=== PATIENT | female | born 1955 | race Caucasian/White ===

== ENCOUNTER 2022-03-18 18:02 | Emergency (ER) | payer MEDICARE, OTHER, SELFPAY ==
[2022-03-18 18:05] VITALS: BP 201/96; PULSE 64; RESP 20; TEMP 36.7; O2SAT 99
--- NOTE | 2022-03-18 18:17 | DI.CT.S_ITS ---
PROCEDURE: CT HEAD/BRAIN WO CON INDICATIONS: fall from horse/headache/nausea/dizziness TECHNIQUE: Noncontrast 4.5 mm thick angled axial sections acquired from the foramen magnum to the vertex, with coronal and sagittal reformats. For radiation dose reduction, the following was used: automated exposure control, adjustment of mA and/or kV according to patient size. COMPARISON: None. FINDINGS: Image quality: Excellent. CSF spaces: Basal cisterns are patent. No extra-axial fluid collections. The ventricles are symmetric in size and shape. Brain: No intracranial bleeds or masses. There is cerebral volume loss for age, with resultant ventricular and sulcal prominence. There are periventricular and deep white matter chronic small vessel ischemic changes. There is intracranial internal carotid artery atherosclerosis. Skull and face: Calvarium and visualized facial bones appear intact, without suspicious lesions. Sinuses: Visualized sinuses and mastoids are clear. IMPRESSION: No evidence acute intracranial process. Dictated by: Andrey Aparicio M.D. on 03/18/2022 at 18:31 Approved by: Andrey Aparicio M.D. on 03/18/2022 at 18:32
--- NOTE | 2022-03-18 18:17 | DI.CT.S_ITS ---
PROCEDURE: CT CERVICAL SPINE WO CON INDICATIONS: fall from horse/headache/nausea/dizziness TECHNIQUE: Noncontrast 3 mm thick sections acquired from the skull base to the T4 level. Sagittal and coronal reformats were then constructed. For radiation dose reduction, the following was used: automated exposure control, adjustment of mA and/or kV according to patient size. COMPARISON: None. FINDINGS: Image quality: Excellent. Bones: No fractures or dislocations. Visualized superior ribs are intact. There is some patient motion artifact. This likely represents the abnormal appearance of the right anterior 1st rib on the sagittal reconstruction. Diffuse cervical spondylitic change. Multilevel severe disc height loss and uncovertebral joint osteophytes resulting in multilevel bony foraminal narrowing. Trace anterolisthesis of C3 on C4 is likely degenerative in nature. Soft tissues: Prevertebral soft tissues are normal in thickness. No paravertebral hematomas. No apical pneumothoraces. IMPRESSION: No evidence acute cervical fracture or dislocation. Severe cervical spondylitic change. Dictated by: Andrey Aparicio M.D. on 03/18/2022 at 18:33 Approved by: Andrey Aparicio M.D. on 03/18/2022 at 18:37
[2022-03-18 20:03] VITALS: PULSE 57; O2SAT 98
[2022-03-18 20:07] VITALS: BP 194/91; PULSE 56; O2SAT 100
--- NOTE | 2022-03-18 20:28 | ED.HA ---
HPI - Headache General Chief Complaint: Headache Stated Complaint: Fell off horse yest./concussion x2 Time Seen by Provider: 03/18/22 20:23 Mode of arrival: Ambulatory History of Present Illness HPI Narrative: 67-year-old female nonsmoker with noncontributory medical history presents with a chief complaint of a headache and nausea after falling off of her horse yesterday. She was riding her horse on her property when it bucked her off and she fell to the ground striking her head. She was wearing a helmet and denies any loss of consciousness. She remembers the entire event. She takes no blood thinners and denies use of alcohol. She has had a few episodes of vomiting and is mildly dizzy but states her symptoms by and large are [id number]. She was seen and evaluated by medics on [place] [place] and encouraged to come see us for further evaluation. Related Data Previous Rx's Medication Instructions Recorded ondansetron 4 mg disintegrating 4 mg PO TID-QID PRN #10 tab 03/18/22 tablet Allergies Allergy/AdvReac Type Severity Reaction Status Date / Time No Known Drug Allergies Allergy Verified 03/18/22 18:08 Review of Systems Review of Systems Narrative: GENERAL: Denies chills, fatigue, malaise, fever, sweats. HEENT: Denies sinus pain, ear pain, sore throat, difficulty swallowing, dizziness. RESPIRATORY: Denies dyspnea, cough, wheezing, hemoptysis, sputum. CARDIOVASCULAR: Denies chest pain, palpitations, orthopnea, edema, GASTROINTESTINAL: see HPI. : Denies dysuria, frequency, incontinence, hematuria, urinary retention. MUSCULOSKELETAL: denies weakness, joint pain, or bony pain SKIN: Denies rash, skin lesions, or other NEUROLOGIC: See HPI PSYCHIATRIC: No concerning psychosocial issues. 12 point review of systems is negative except for those stated above Exam Narrative Exam Narrative: GENERAL: [67] year old patient appears stated age. Well-developed patient, in mild distress. GCS 15 HEAD: Atraumatic. Normocephalic. EYES: Pupils equal round and reactive. No hyphema Extraocular motions intact. No scleral icterus. No injection or drainage. ENT: Nose without bleeding, purulent drainage. No nasal septal hematoma Throat without erythema, tonsillar hypertrophy or exudate. Airway patent. NECK: Trachea midline. Non tender CARDIOVASCULAR: Regular rate and rhythm without murmurs, gallops, or rubs. RESPIRATORY: Clear to auscultation. Breath sounds equal bilaterally. No wheezes, rales, or rhonchi. GASTROINTESTINAL: Abdomen soft, non-tender, nondistended. EXTREMITIES: No edema or joint tenderness. BACK: Nontender without deformity or crepitance. No flank tenderness. NEURO: AOx3. SKIN: No rash or erythema of visible areas Initial Vital Signs Initial Vital Signs: Vital Signs Temperature 98.1 F 03/18/22 18:05 Pulse Rate 64 03/18/22 18:05 Respiratory Rate 20 03/18/22 18:05 Blood Pressure 201/96 H 03/18/22 18:05 Pulse Oximetry 99 03/18/22 18:05 Course Orders Ordered: Discontinued Medications Ondansetron HCl (Ondansetron 4 Mg Odt Prepack) 1 bottle MISC SEEINSTR ONE Stop: 03/18/22 20:38 Last Admin: 03/18/22 20:45 Dose: 1 bottle Documented by: AMPARO Vital Signs Vital signs: Vital Signs - 8 hr 03/18/22 20:30 Pulse Rate 65 Blood Pressure 182/90 H Pulse Oximetry 98 MDM - Headache Imaging Data CT scan - head: Radiologist's Impression: [place] [id number] CT Scan Report Signed Patient: Raven Sepulveda MR#: [id number] : 1955 Acct:[id number] Age/Sex: 67 / F Date of Service: 03/18/22 Loc: ED Accession Number: [id number] ?? Procedure: CT head/brain wo con Ordering Provider: Tristian Becerra D.O. PROCEDURE:? CT HEAD/BRAIN WO CON ? INDICATIONS:? fall from horse/headache/nausea/dizziness ? TECHNIQUE:? Noncontrast 4.5 mm thick angled axial sections acquired from the foramen magnum to the vertex, with coronal and sagittal reformats.? For radiation dose reduction, the following was used:? automated exposure control, adjustment of mA and/or kV according to patient size.? ? COMPARISON:? None. ? FINDINGS:? Image quality:? Excellent.? ? CSF spaces:? Basal cisterns are patent.? No extra-axial fluid collections.? The ventricles are symmetric in size and shape.? ? Brain:? No intracranial bleeds or masses.? There is cerebral volume loss for age, with resultant ventricular and sulcal prominence.? There are periventricular and deep white matter chronic small vessel ischemic changes.? There is intracranial internal carotid artery atherosclerosis.? ? Skull and face:? Calvarium and visualized facial bones appear intact, without suspicious lesions.? ? Sinuses:? Visualized sinuses and mastoids are clear.? ? IMPRESSION:? No evidence acute intracranial process. ? ? Dictated by: Andrey Aparicio M.D. on 03/18/2022 at 18:31 ? ? Approved by: Andrey Aparicio M.D. on 03/18/2022 at 18:32 ? CT - cervical spine: Radiologist's Impression: [place] [address] CT Scan Report Signed Patient: Raven Sepulveda MR#: [id number] : 1955 Acct:[id number] Age/Sex: 67 / F Date of Service: 03/18/22 Loc: ED Accession Number: [id number] ?? Procedure: CT cervical spine wo con Ordering Provider: Tristian Becerra D.O. PROCEDURE:? CT CERVICAL SPINE WO CON ? INDICATIONS:? fall from horse/headache/nausea/dizziness ? TECHNIQUE:? Noncontrast 3 mm thick sections acquired from the skull base to the T4 level.? Sagittal and coronal reformats were then constructed.? For radiation dose reduction, the following was used:? automated exposure control, adjustment of mA and/or kV according to patient size.? ? COMPARISON:? None. ? FINDINGS:? Image quality:? Excellent.? ? Bones:? No fractures or dislocations.? Visualized superior ribs are intact.? There is some patient motion artifact.? This likely represents the abnormal appearance of the right anterior 1st rib on the sagittal reconstruction.? Diffuse cervical spondylitic change.? Multilevel severe disc height loss and uncovertebral joint osteophytes resulting in multilevel bony foraminal narrowing.? Trace anterolisthesis of C3 on C4 is likely degenerative in nature. ? Soft tissues:? Prevertebral soft tissues are normal in thickness.? No paravertebral hematomas.? No apical pneumothoraces.? ? ? IMPRESSION:? No evidence acute cervical fracture or dislocation.? Severe cervical spondylitic change. ? Dictated by: Andrey Aparicio M.D. on 03/18/2022 at 18:33 ? ? MDM Narrative Medical decision making narrative: Patient presents with moderate concussive symptoms and otherwise reassuring history and physical exam. Imaging is unremarkable there is no evidence of intracranial hemorrhage or other abnormal finding. Pain is well controlled, she is able to ambulate without difficulty and is tolerating hydration. Return precautions given and questions answered to her apparent satisfaction Discharge Plan Departure Patient Disposition: Home Clinical Impression: Postconcussion syndrome Instructions: DI for Concussion Activity Restrictions/Additional Instructions: *You have been diagnosed with [concussion. As we discussed your history and physical exam are very reassuring and the CT scan of your head and neck showed no signs of significant injury such as bleeding or bruising in your brain or fracture, dislocation or other bony abnormality in your neck. *What to do: *Please continue to take your regular medications as directed. [x] New medication prescriptions sent to your pharmacy: [[facility] ] [ ] New medication written as a paper prescription [ ] No new medications given * You have a moderate concussion and will likely have a mild headache and some nausea for a few days. Avoiding highly stimulating activities and even TV or computers may be helpful in minimizing your symptoms. Avoid activities that will put you at risk for another head injury for at least a week. You can take tylenol for headache or the prescription provided for nausea/vomiting. Return for worsening or persistent symptoms *If you do not have a primary care provider please contact the [facility] Resource line at [phone]. They will ask some questions about your medical history and help get you set up with a doctor in the community. *Return to Emergency Department if you should have any new, worsening or concerning symptoms, such as [fever greater than 101 F, shaking chills, worsening pain, persistent vomiting or other bothersome symptoms] Prescriptions: New ondansetron 4 mg tablet,disintegrating 4 mg PO TID-QID PRN (Reason: nausea and vomiting) Qty: 10 0RF Referrals: Brittni Ruiz MD [Primary Care Provider] -
[2022-03-18 20:30] VITALS: BP 182/90; PULSE 65; O2SAT 98
[2022-03-18] MEDS: ONDANSETRON 4 MG ODT PREPACK 1 BOTTLE MISC (20:45)
== END 2022-03-18 20:54 | disposition home or self-care (01) ==
PROVIDERS: Emergency Provider Emergency Medicine; PCP Family Medicine
DX: F07.81 Postconcussional syndrome (principal)
CPT/HCPCS: 70450; 72125; 99281; 99284

== ENCOUNTER → 2024-04-13 15:41 | Outpatient (CLI) | payer MEDICARE, OTHER, SELFPAY ==
--- NOTE | 2024-04-13 | DI.RAD.S_ITS ---
PROCEDURE: XR LUMBAR SPINE 2-3V INDICATIONS: low back pain TECHNIQUE: 3 views of the lumbar spine were acquired. COMPARISON: None. FINDINGS: Bones: 5 [id number] vertebrae are present. Grade 1 anterolisthesis of L4 on L5. Mild dextrocurvature of the lower lumbar spine. There is multilevel facet arthropathy, worse at L4-5 and L5-S1. Multilevel disc height loss with degenerative endplate changes and spurring is present. This is most pronounced at L4-5. No vertebral body compression fractures. No suspicious bony lesions. Diffusely decreased osseous mineralization. Soft tissues: Overlying bowel gas pattern is normal. No suspicious soft tissue calcifications. Atherosclerotic vascular calcifications. IMPRESSION: Multilevel degenerative changes of the lumbar spine, most pronounced at L4-5 with grade 1 anterolisthesis. Dictated by: Volodymyr Dennison M.D. on 04/13/2024 at 16:49 Approved by: Volodymyr Dennison M.D. on 04/13/2024 at 16:50
== END ==
PROVIDERS: PCP Family Medicine; Referring Provider Chiropractor; Visit Provider Chiropractor
DX: M47.816 Spondylosis without myelopathy or radiculopathy, lumbar region (principal); M47.817 Spondylosis without myelopathy or radiculopathy, lumbosacral region; M43.16 Spondylolisthesis, lumbar region; M54.50 Low back pain, unspecified
CPT/HCPCS: 72100

== ENCOUNTER → 2025-06-13 08:55 | Outpatient (CLI) | payer MEDICARE, OTHER, SELFPAY ==
--- NOTE | 2025-06-13 09:04 | DI.RAD.S_ITS ---
PROCEDURE: XR CHEST 2V INDICATIONS: URINARY INCONTENENCE TECHNIQUE: 2 views of the chest were acquired. COMPARISON: None. FINDINGS: [id number] bilateral perihilar and lower lobe peribronchial thickening and mild patchy lower lobe opacities, some of which may be related expiratory result; however, bronchitis, viral infection, asthma or other process should be considered. Follow-up suggested. Mildly prominent nolberto, mildly prominent pulmonary vessels and/or hilar lymph nodes. Mild bibasilar subsegmental atelectasis. Degenerative changes of the thoracic spine and shoulders. Cardiopericardial silhouette within normal limits. No pneumothorax, no pleural effusion. IMPRESSION: Peribronchial thickening with patchy lower lobe opacities as discussed above. Follow-up suggested. If symptoms persist or worsen, CT chest could be performed. Dictated by: Otto Barajas M.D. on 06/13/2025 at 21:10 Approved by: Otto Barajas M.D. on 06/13/2025 at 21:12
--- NOTE | 2025-06-13 09:05 | DI.RAD.S_ITS ---
PROCEDURE: XR SACRUM COCCYX MIN 2V INDICATIONS: URINARY INCONTENENCE TECHNIQUE: 3 views of the sacrum and coccyx acquired. COMPARISON: None. FINDINGS: Stimulator device battery pack is noted posteriorly which is at the level of the left iliac bone with lead extending anteriorly into the pelvis at approximately S4 level terminates approximately 1.9 cm anterior to the anterior margin of the sacrum. Degenerative changes lower lumbar spine with grade 1 spondylolisthesis L4 and L5. No radiographic evidence of displaced fracture, dislocation . IMPRESSION: Stimulator device lead and battery pack as discussed above. Degenerative changes. Dictated by: Otto Barajas M.D. on 06/13/2025 at 21:39 Approved by: Otto Barajas M.D. on 06/13/2025 at 21:41
== END ==
PROVIDERS: PCP Family Medicine; Referring Provider Family Medicine; Visit Provider Student in an Organized Health Care Education/Training Program
DX: J98.11 Atelectasis (principal); R32 Unspecified urinary incontinence; M47.814 Spondylosis without myelopathy or radiculopathy, thoracic region; M47.816 Spondylosis without myelopathy or radiculopathy, lumbar region; M43.16 Spondylolisthesis, lumbar region; Z96.82 Presence of neurostimulator
CPT/HCPCS: 71046; 72220